=== PATIENT | female | born 1950 | race Hispanic/Latino ===

== ENCOUNTER 2018-01-23 09:04 | Emergency (ER) | payer OTHER ==
[2018-01-23] MEDS ORDERED: HYDROCODONE/APAP 10/325 TAB ONE (09:46)
[2018-01-23 10:43] LABS: Urine Blood TRACE (NEG); Urine Glucose NEGATIVE (NEG); Urine Protein NEGATIVE (NEG); Urine Specific Gravity >1.030 (1.005-1.030); Urine pH 5.5 (5.0-7.0)
--- NOTE | 2018-01-23 11:34 | RAD REPORT ---
EXAM DESCRIPTION: RAD - Ribs Right - 01/23/2018 10:45 am CLINICAL HISTORY: Fall, right-sided pain COMPARISON: 01/21/2018 FINDINGS: No displaced right rib fractures are seen. Cholecystectomy clips are noted. No pneumothora x is seen.
--- NOTE | 2018-01-23 12:22 | ER ---
Nurse's Notes [facility] Name: Xochitl Damico Age: 67 yrs Sex: Female : 1950 Arrival Date: 01/23/2018 Time: 09:05 Bed 17 Private MD: Phyllis Pérez Diagnosis: Contusion of right front wall of thorax-rib contusion Presentation: 01/23 09:21 Presenting complaint: Patient states: Fell from standing 6 days ago, had outpatient ss chest XRAY two days ago which was negative. However, patient complains of increased pain that is worse when moving or taking a deep breath. Transition of care: patient was not received from another setting of care. Onset of symptoms was January 19, 2018. Care prior to arrival: None. 09:21 Method Of Arrival: Ambulatory ss 09:21 Acuity: LUIS ANTONIO 3 ss Triage Assessment: 09:41 General: Appears in no apparent distress. uncomfortable. hj 09:41 General: Behavior is calm, cooperative, appropriate for age. hj 09:41 Pain: Complains of pain in chest. hj Historical: - Allergies: 09:23 No Known Allergies; ss - Immunization history:: Adult Immunizations up to date. - Social history:: Smoking status: Patient/guardian denies using tobacco. Screenin:40 Abuse screen: Denies threats or abuse. Denies injuries from another. Nutritional hj screening: No deficits noted. Tuberculosis screening: No symptoms or risk factors identified. Fall Risk None identified. Assessment: 09:40 Neuro: Level of Consciousness is awake, alert, obeys commands, Oriented to person, hj place, time, situation, Appropriate for age. 10:03 General: Appears in no apparent distress. uncomfortable, Behavior is cooperative, aj1 restless. Pain: Complains of pain in chest Pain does not radiate. Pain currently is 10 out of 10 on a pain scale. Is continuous, Alleviated by nothing. Aggravated by cough, deep breathing. Neuro: Level of Consciousness is awake, alert, obeys commands, Oriented to person, place, time, situation. Cardiovascular: Reports chest pain, Heart tones S1 S2 present Patient's skin is warm and dry. Rhythm is regular Chest pain is described as Pain is 10 out of 10 on a pain scale. is located in chest wall is aggravated by cough and deep breathing. Respiratory: Airway is patent Respiratory effort is even, unlabored, Respiratory pattern is regular, symmetrical, Breath sounds are clear bilaterally. GI: No signs and/or symptoms were reported involving the gastrointestinal system. : No signs and/or symptoms were reported regarding the genitourinary system. EENT: No signs and/or symptoms were reported regarding the EENT system. Derm: No signs and/or symptoms reported regarding the dermatologic system. Skin is pink, warm \T\ dry. normal. Musculoskeletal: No signs and/or symptoms reported regarding the musculoskeletal system. Circulation, motion, and sensation intact. 11:05 Reassessment: Patient appears in no apparent distress at this time. No changes from aj1 previously documented assessment. Patient and/or family updated on plan of care and expected duration. Pain level reassessed. Patient is alert, oriented x 3, equal unlabored respirations, skin warm/dry/pink. 12:16 Reassessment: Patient appears in no apparent distress at this time. No changes from aj1 previously documented assessment. Patient and/or family updated on plan of care and expected duration. Pain level reassessed. Patient is alert, oriented x 3, equal unlabored respirations, skin warm/dry/pink. Vital Signs: 09:15 BP 152 / 75; Pulse 67; Resp 18; Temp 97.8; Pulse Ox 99% on R/A; Weight 80.74 kg; Height mh5 5 ft. 8 in. (172.72 cm); Pain 10/10; 09:23 BP 152 / 79; Pulse 76; Resp 18; Pulse Ox 98% on R/A; Weight 80.74 kg; Height 5 ft. 8 ss in. (172.72 cm); Pain 10/10; 10:55 BP 126 / 98; Pulse 72; Resp 16; Pulse Ox 98% on R/A; Pain 9/10; mh5 12:16 BP 130 / 79; Pulse 65; Resp 18; Pulse Ox 95% on R/A; aj1 09:23 Body Mass Index 27.06 (80.74 kg, 172.72 cm) ED Course: 09:05 Patient arrived in ED. as 09:07 Phyllis Pérez MD is Private Physician. as 09:10 Sarbjit Asencio NP [facility]. pm1 09:10 Stanton Medrano MD is Attending Physician. pm1 09:23 Triage completed. ss 09:23 Arm band placed on right wrist. ss 09:41 Patient has correct armband on for positive identification. Placed in gown. Bed in low hj position. Call light in reach. Side rails up X 1. Adult w/ patient. 09:53 Urine collected: clean catch specimen, clear. [facility] 09:59 Alysia Coelho, RN is Primary Nurse. aj1 10:03 No provider procedures requiring assistance completed. aj1 10:36 Patient moved to radiology via wheelchair. kw1 10:42 X-ray completed. Patient tolerated procedure well. Patient moved back from radiology. jb2 10:43 Ribs Right XRAY In Process Unspecified. EDMS 12:58 Patient did not have IV access during this emergency room visit. aj1 Administered Medications: 09:44 Drug: [place] 10 mg-325 mg 1 tabs Route: PO; hj 09:48 Follow up: Response: No adverse reaction; Pain is decreased hj 12:57 Drug: Zofran 4 mg Route: PO; aj1 13:00 Follow up: Response: No adverse reaction aj1 Outcome: 12:21 Discharge ordered by MD. pm1 12:58 Discharged to home ambulatory. aj1 12:58 Condition: good 12:58 Discharge instructions given to patient, Instructed on discharge instructions, follow up and referral plans. medication usage, Demonstrated understanding of instructions, follow-up care, medications, Prescriptions given X 1. 13:01 Patient left the ED. aj1 Signatures: Dispatcher [employer] EDTX Alysia Coelho, TESS PULIDO aj1 Victoriano Valente jb2 Zonia Zambrano [place], RN RN Prashanth Mac RN RN Sarbjit Asencio NP [employer] pm1 Aylin Zambrano [facility] Jenni Layne [facility]
--- NOTE | 2018-01-23 12:22 | EDPHYS ---
Physician Documentation [facility] Name: Xochitl Damico Age: 67 yrs Sex: Female : 1950 Arrival Date: 01/23/2018 Time: 09:05 Bed 17 Private MD: Phyllis Pérez ED Physician Stanton Medrano HPI: 01/23 12:00 This 67 yrs old Female presents to ER via Ambulatory with complaints of Back pm1 Pain, Chest Wall Pain. 12:00 The patient or guardian reports chest pain that is located primarily in the right pm1 breast. Onset: The symptoms/episode began/occurred 6 day(s) ago. The pain does not radiate. Associated signs and symptoms: Pertinent negatives: abdominal pain, diaphoresis, nausea, palpitations, shortness of breath, vomiting. The chest pain is described as aching. Duration: The patient or guardian reports a single episode. Modifying factors: The symptoms are alleviated by nothing. the symptoms are aggravated by deep breath, palpation of area. Severity of pain: in the emergency department the pain is actually worse. The patient has been recently seen by a physician: the patient's primary care provider, chest xray two days ago for the same complaint after seeing PCP on the same day. Patient tripped at home with a coffee machine in her hands. Patient fell on her right side of her chest. Patient went to her PCP on Sunday and had a chest xray completed here. Negative for pneumothorax and rib fracture. Historical: - Allergies: 09:23 No Known Allergies; ss - Immunization history:: Adult Immunizations up to date. - Social history:: Smoking status: Patient/guardian denies using tobacco. ROS: 12:00 Constitutional: Negative for fever, chills, and weight loss, Eyes: Negative for injury, pm1 pain, redness, and discharge, ENT: Negative for injury, pain, and discharge, Neck: Negative for injury, pain, and swelling, Cardiovascular: Negative for chest pain, palpitations, and edema. Positive for right rib pain Respiratory: Negative for shortness of breath, cough, wheezing, and pleuritic chest pain, Abdomen/GI: Negative for abdominal pain, nausea, vomiting, diarrhea, and constipation. 12:00 : Negative for injury, bleeding, discharge, and swelling, MS/Extremity: Negative for injury and deformity, Skin: Negative for injury, rash, and discoloration, Neuro: Negative for headache, weakness, numbness, tingling, and seizure. 12:00 Back: Positive for of the right mid back. Exam: 12:00 Constitutional: This is a well developed, well nourished patient who is awake, alert, pm1 and in no acute distress. Head/Face: Normocephalic, atraumatic. Eyes: Pupils equal round and reactive to light, extra-ocular motions intact. Lids and lashes normal. Conjunctiva and sclera are non-icteric and not injected. Cornea within normal limits. Periorbital areas with no swelling, redness, or edema. ENT: Nares patent. No nasal discharge, no septal abnormalities noted. Tympanic membranes are normal and external auditory canals are clear. Oropharynx with no redness, swelling, or masses, exudates, or evidence of obstruction, uvula midline. Mucous membranes moist. Neck: Trachea midline, no thyromegaly or masses palpated, and no cervical lymphadenopathy. Supple, full range of motion without nuchal rigidity, or vertebral point tenderness. No Meningismus. 12:00 Cardiovascular: Regular rate and rhythm with a normal S1 and S2. No gallops, murmurs, or rubs. Normal PMI, no JVD. No pulse deficits. Respiratory: Lungs have equal breath sounds bilaterally, clear to auscultation and percussion. No rales, rhonchi or wheezes noted. No increased work of breathing, no retractions or nasal flaring. Abdomen/GI: Soft, non-tender, with normal bowel sounds. No distension or tympany. No guarding or rebound. No evidence of tenderness throughout. 12:00 Skin: Warm, dry with normal turgor. Normal color with no rashes, no lesions, and no evidence of cellulitis. MS/ Extremity: Pulses equal, no cyanosis. Neurovascular intact. Full, normal range of motion. 12:00 Chest/axilla: Inspection: normal, Palpation: crepitus, is not appreciated, tenderness, of the right breast, that totally reproduces the patient's complaints. 12:00 Back: pain, that is mild, of the right mid back, normal spinal alignment noted, vertebral tenderness, is not appreciated, muscle spasm, is appreciated in the right mid back. 12:00 Neuro: Orientation: is normal, Motor: is normal, moves all fours, strength is normal, strength is 5/5 in all extremities, Gait: is steady, at a normal pace, without difficulty. Vital Signs: 09:15 BP 152 / 75; Pulse 67; Resp 18; Temp 97.8; Pulse Ox 99% on R/A; Weight 80.74 kg; Height mh5 5 ft. 8 in. (172.72 cm); Pain 10/10; 09:23 BP 152 / 79; Pulse 76; Resp 18; Pulse Ox 98% on R/A; Weight 80.74 kg; Height 5 ft. 8 ss in. (172.72 cm); Pain 10/10; 10:55 BP 126 / 98; Pulse 72; Resp 16; Pulse Ox 98% on R/A; Pain 9/10; mh5 12:16 BP 130 / 79; Pulse 65; Resp 18; Pulse Ox 95% on R/A; aj1 09:23 Body Mass Index 27.06 (80.74 kg, 172.72 cm) ss MDM: 09:20 Patient medically screened. pm1 12:20 Data reviewed: vital signs. Data interpreted: Pulse oximetry: on room air is 95 %. pm1 Interpretation: normal. Counseling: I had a detailed discussion with the patient and/or guardian regarding: the historical points, exam findings, and any diagnostic results supporting the discharge/admit diagnosis, radiology results, the need for outpatient follow up, to return to the emergency department if symptoms worsen or persist or if there are any questions or concerns that arise at home. 01/23 09:53 Order name: Urine Dipstick--Ancillary (enter results); Complete Time: 10:47 bd 01/23 09:44 Order name: Ribs Right XRAY; Complete Time: 11:56 pm1 Administered Medications: 09:44 Drug: [place] 10 mg-325 mg 1 tabs Route: PO; hj 09:48 Follow up: Response: No adverse reaction; Pain is decreased hj 12:57 Drug: Zofran 4 mg Route: PO; aj1 13:00 Follow up: Response: No adverse reaction aj1 Disposition: 01/23/18 12:21 Discharged to Home. Impression: Contusion of right front wall of thorax - rib contusion. - Condition is Stable. - Discharge Instructions: Rib Contusion. - Prescriptions for Cyclobenzaprine 10 mg Oral Tablet - take 1 tablet by ORAL route every 8 hours As needed; 20 tablet. - Medication Reconciliation Form, Thank You Letter, Prescription Opioid Use form. - Follow up: Emergency Department; When: As needed; Reason: Worsening of condition. Follow up: Private Physician; When: 2 - 3 days; Reason: Recheck today's complaints, Continuance of care, Re-evaluation by your physician. - Problem is new. - Symptoms have improved. Addendum: 01/25/2018 07:29 Co-signature as Attending Physician, Stanton Medrano MD I agree with the assessment and w a plan of care. Signatures: Dispatcher [employer] EDAlysia Moreau RN RN aj1 Heather Angel RN RN ss Prashanth Mac RN RN hj Sarbjit Asencio, MACHINE OPERATOR GENERAL MACHINE OPERATOR GENERAL pm1 Stanton Medrano MD MD sd
[2018-01-23] MEDS ORDERED: ONDANSETRON 4 MG (ODT) TAB ONE (12:54)
== END 2018-01-23 13:01 | disposition home or self-care (01) ==
LOC: ER 09:04
DX: S20.211A Contusion of right front wall of thorax, initial encounter (principal); W01.0XXA Fall on same level from slipping, tripping and stumbling without subsequent striking against object, initial encounter; Y93.89 Activity, other specified; Y92.009 Unspecified place in unspecified non-institutional (private) residence as the place of occurrence of the external cause
CPT/HCPCS: 81003; 99284

== ENCOUNTER 2020-11-08 12:28 | Emergency (ER) | payer OTHER ==
--- OUTSIDE RECORDS SUMMARY | 2020-11-08 12:32 | XMS REPORT | Continuity of Care Document ---
:1950 Author Organization [employer] [facility] Care Team Providers Name Role Phone [employer] [facility] Unavailable Un available Problems Problem Status Onset Classification Date Comments Sourc e Date Reported Essential Active 08/17/20 Problem 08/28/2020 [facility] hypertension 15 Neuro (disorder) Essential tremor Active 08/17/20 Problem 08/28/2020 Mi melissa (disorder) 15 Neuro Hyperlipidemia Active 08/17/20 Problem 08/28/2020 Misc her (disorder) 15 Neuro Major depression, Active 08/17/20 Problem 08/28/2020 M ischer single episode 15 Neuro (disorder) Type II diabetes Active 08/17/20 Problem 08/28/2020 Mi melissa mellitus without 15 Katie ro complication (disorder) Hypothyroidism Active Problem 08/28/2020 Misc her (disorder) Neuro Headache (finding) Active Problem 08/28/2020 [facility] Tinnitus (finding) Active Problem 08/28/2020 [facility] Neck pain Active Problem 08/28/2020 [facility] (finding) Neuro Medications Medication Details Route Status Patient Ordering Order Source Instructions Provider Date primidone 250 250 mg = 1 Active [facility]ischer mg oral tablet tab, PO, BID, 020 Katie ro # 180 tab, 2 Refill(s), Pharmacy: [facility], 162.56, cm, 07/28/20 13:14:00 CDT, Height, 78.182, kg, 07/28/20 13:14:00 CDT, Weight levothyroxine 112 microgram Active Misc her 112 mcg (0.112 = 1 tab, PO, 020 Neur o mg) oral tablet Daily, 0 Refill(s) mesalamine 1200 1.2 gm = 1 Active Misch er MG Enteric tab, PO, BID, 020 Neuro Coated Tablet 0 Refill(s) sertraline 25 25 mg = 1 Active [facility]ischer mg oral tablet tab, PO, 020 Neuro Daily, 0 Refill(s) 3 ML 1.8 mg, Active [facility] liraglutide 6 SUB-Q, Daily, 020 Neur o MG/ML Prefilled # 9 mL, 1 Syringe Refill(s) [Victoza] primidone 250 250 mg = 1 Active Mischer mg oral tablet tab, PO, BID, 019 Katie ro # 180 tab, 2 Refill(s), [facility] primidone 50 mg 50 mg = 1 No Longer Mis her oral tablet tab, PO, BID, Active 018 Neuro # 180 tab, 3 Refill(s), [id number] primidone 50 mg 50 mg = 1 Inactive Misch er oral tablet tab, PO, BID, 018 Neuro X 90 day, # 180 tab, 2 Refill(s), [id number] Allergies, Adverse Reactions, Alerts Substance Category Reaction Severity Reaction Status Date Comments S ource type Reported No Known Assertion Drug Misch er Medication allergy Neuro Allergies Immunizations No Data Provided for This Section Results No Data Provided for This Section Pathology Reports No Data Provided for This Section Diagnostic Reports No Data Provided for This Section Consultation Notes No Data Provided for This Section Discharge Summaries No Data Provided for This Section History and Physicals No Data Provided for This Section Vital Signs Vital Sign Value Date Comments Source Systolic (mm Hg) 121 07/28/2020 [facility] Katie ro Diastolic (mm Hg) 60 07/28/2020 [facility] Ne uro Heart Rate 84 07/28/2020 [facility] Neuro Respitory Rate 16 07/28/2020 [facility] Neuro Height 162.56 cm 07/28/2020 [facility] Neuro Weight 78.182 07/28/2020 [facility] Neuro BMI Calculated 29.59 07/28/2020 [facility] Neuro Encounters Location Location Encounter Encounter Reason Attending ADM [place] Stat us Source Details Type Number For Provider Date Date Visit Outpatient [id number] MARIIA 06/07 [facility] [place] Outpatient [id number] MARIIA 07/19 [facility] [place] MNA Ambulatory [id number] Mariia 07/19 07/19 [facility] Neurology Pre-Reg Kre /2017 [facility] MNA Outside [id number] 10/19 10/21 [facility] Neurology Medical /2018 [facility] Records Outpatient [id number] Mariia 01/02 Active [facility] [place] Outpatient [id number] Mariia 04/03 Active [facility] José Miguel MNA Ambulatory [id number] Mariia 04/03 04/03 [facility] Pre[facility] Outpatient [id number] Mariia 07/28 Active [facility] [place] MNA Outpatient [id number] Mariia 07/28 07/29 [facility] Outpatient [id number] Mariia 08/25 Active [facility] José Miguel MNA Outpatient [id number] Mariia 08/25 08/26 [facility] Outpatient [id number] Mariia 10/29 Active [facility] José Miguel Outpatient [id number] Mariia 12/10 Active [facility] José Miguel Procedures No Data Provided for This Section Assessment and Plan No Data Provided for This Section Plan of Care No Data Provided for This Section Social History Social History Date Source Social History TypeResponse 08/26/2020 [facility] o Smoking Status Never smoker; Exposure to Tobacco Smoke Unable to obtain; Cigarette Smoking Last 365 Days No; Reg Smoking Cessation Counseling No entered on: 08/25/20 Family History No Data Provided for This Section Advance Directives No Data Provided for This Section Functional Status No Data Provided for This Section
--- OUTSIDE RECORDS SUMMARY | 2020-11-08 12:33 | XMS REPORT ---
:1950 Author Organization [facility] Address [address] , [address] [place] [address] Care Team Providers Name Role Phone Bhatt, Chapin Unavailable [phone] PROBLEMS Type Condition ICD9-CM [id number] Onset Condition SNOMED Code Notes Code Code Dates Status Problem High cholesterol E78.00 Active 54779696 Problem Type 2 diabetes E11.9 Active 883997292 mellitus without complications Problem longterm current Z79.4 Active 749985067 use of insulin Problem Mixed E78.2 Active 331424604 hyperlipidemia Problem Acquired E03.9 Active 157970068 hypothyroidism Problem Memory problem R41.3 Active 292825169 Problem Diabetes E11.9 Active 706024771 Problem Depression, major, F32.2 Active 732915295226 single episode, severe Problem Circulation I99.9 Active 42985432 problem Problem Grieving F43.21 Active 30877537 Problem Depression F32.9 Active 58401468 Problem Paresthesia of R20.2 Active 97855842 skin Problem HTN (hypertension) I10 Active 33559027 Problem Mixed stress and N39.46 Active 797429517 urge urinary incontinence Problem Gastroesophageal K21.9 Active 422929094 reflux disease without esophagitis Problem Uncontrolled type E11.65 Active [id number] 9 2 diabetes mellitus with hyperglycemia Problem Stress N39.3 Active 07818766 incontinence of urine ALLERGIES No Known Allergies ENCOUNTERS from 1950 to 2020-10-29 Encounter Location Date Provider Diagnosis [facility] [address] Oct, 2020 Chapin Bhatt Acut e pain of right Joint [facility] [address] [place], shoulder M25.511 [facility] [id number] IMMUNIZATIONS Vaccine Route Administration Date Status FluAD IM Intramuscular Jun 26, 2019 Administered SOCIAL HISTORY Tobacco Use: Social History Observation Description Date Details (start date - stop date) Former Smoker Sex Assigned At : Social History Observation Description Sex Assigned At Unknown PHQ9 Question Answer Notes Little interest or pleasure in doing Nearly every day things Feeling down, depressed, or hopeless Nearly every day Trouble falling or staying asleep or Nearly every day sleeping too much Feeling tired or having little energy Several days Poor appetite or overeating Several days Feeling bad about yourself, or that you More than half the d ays are a failure, or have let yourself or your family down Trouble concentrating on things, such as Not at all reading the newspaper or watching television Moving or speaking so slowly that other More than half the d ays people could have noticed; or the opposite, being so fidgety or restless that you have been moving around a lot more than usual Total Score 16 Interpretation Moderately severe depression Thoughts that you would be better off Several days (Con regulatory auditor Suicide or of hurting yourself in some way Assessment Risk) Tobacco Use/Smoking Question Answer Notes Are you a former smoker REASON FOR REFERRAL No Information VITAL SIGNS No information MEDICATIONS Medication SIG (Take, Route, Notes Start Date End Date Status Frequency, Duration) Lisinopril 40 MG 1 tablet Orally Once a Active day for 90 Victoza 18 MG/3ML 1.8mg Subcutaneous Active daily for 90 days FreeStyle Daniela 14 Day as directed daily for Apr, Active [place] - 30 days FreeStyle Daniela 14 Day as directed SC daily Apr, Active Sensor - for 30 days Levothyroxine Sodium 112 1 tablet on an empty Active MCG stomach in the morning Orally Once a day for 90 Glucometer Kit Check BS twice a day Nov,February, Active Fingerstick BID for 99 months Jardiance 25 MG 1 tablet Orally Once a Active day for 90 days Lovastatin 20 MG 1 tablet with the A ctive evening meal Orally Once a day for 90 days Levemir 100 UNIT/ML as directed Acti ve Subcutaneous Duloxetine HCl 60 MG 2 capsule Orally Once a Active day for 90 days Trazodone HCl 50 MG 1 tablet at bedtime as Active needed Orally Once a day for 90 days Metformin HCl 1000 MG 1 tablet with a meal Active Orally twice a day for 90 days Omeprazole 40 MG 1 capsule Orally Once a Active day Oxybutynin Chloride 5 MG 1 tablet Orally Twice a Active day for 90 days Gemfibrozil 600 MG 1 tablet Orally once a Active day for 90 days PROCEDURES No Information RESULTS No Results REASON FOR VISIT xray MEDICAL (GENERAL) HISTORY Type Description Date Medical History High cholesterol Medical History Depression Medical History HTN (hypertension) Medical History Memory problem Medical History Diabetes Medical History Circulation problem Surgical History No Surgical history information Goals Section No Information Health Concerns No Information MEDICAL EQUIPMENT No Information MENTAL STATUS No Information FUNCTIONAL STATUS No Information ASSESSMENTS Encounter Date Diagnosis Assessment Notes Treatment Notes Treatm ent Clinical Notes Oct, Acute pain of right shoulder (ICD-10 - M25.511) PLAN OF TREATMENT Medication Medication Name Sig Start Date Stop Date Levothyroxine Sodium 112 MCG 1 tablet on an empty stomach in the morning Orally Once a day for 90 FreeStyle Daniela 14 Day Sensor - as directed SC daily for 30 2018 days Oxybutynin Chloride 5 MG 1 tablet Orally Twice a day for 90 days Gemfibrozil 600 MG 1 tablet Orally once a day for 90 days FreeStyle Daniela 14 Day [place] - as directed daily for 30 days Apr, Lisinopril 40 MG 1 tablet Orally Once a day for 90 Duloxetine HCl 60 MG 2 capsule Orally Once a day for 90 days Metformin HCl 1000 MG 1 tablet with a meal Orally twice a day for 90 days Victoza 18 MG/3ML 1.8mg Subcutaneous daily for 90 days Trazodone HCl 50 MG 1 tablet at bedtime as needed Orally Once a day for 90 days Jardiance 25 MG 1 tablet Orally Once a day for 90 days Lovastatin 20 MG 1 tablet with the evening meal Orally Once a day for 90 days Treatment Notes Test Name Order Date Shoulder Right 2 View 2020-10-29 Next Appt Details Provider Name:Chapin Bhatt, 2020-11-04 0 2:00:00 PM, [address], [place], [address], Insurance Providers Payer Name Payer Payer Insured Patient Coverage Coverage End Address Phone Name Relationship to Start Date Ryan e Insured [employer] [address] [address] [phone] [facility] [employer] [address] [address]
--- OUTSIDE RECORDS SUMMARY | 2020-11-08 12:33 | XMS REPORT | Continuity of Care Document ---
:1950 Author Organization [facility] t Address [address] [place] [address] Care Team Providers Name Role Phone Stanton Jeffers Attending Clinician Problems Condition Condition Condition Status Onset Resolution Last Treating Co mments Source Name Details Category Date Date Treatment Clinician Date Moderate Moderate Problem Active [place] recurrent Recurrent 6-21 da major Major 00:00: [facility] depression Depression 00 al [facility] Recurrent Recurrent Problem Active [place] major Major 6-21 da depressive Depressive 00:00: [facility] episodes, Episodes, 00 al moderate Moderate Health Outreac h Program Generalize Generalize Problem Active 2018 M [place] d anxiety d Anxiety 6-21 da disorder Disorder 00:00: [facility] 00 al [facility] Essential Problem Active 2014-102020-08-28 Me moria hypertensi - 01:44:18 l on 00:00: José Miguel (disorder) Essential 00 hypertensi on (disorder) Active 08/17/2015 Problem 08/28/2020 [facility] Essential Problem Active 2014-102020-08-28 Me moria tremor - 01:44:18 l (disorder) 00:00: Omar n Essential 00 tremor (disorder) Active 08/17/2015 Problem 08/28/2020 [facility] Hyperlipid Problem Active 2014-102020-08-28 M emoria emia - 01:44:18 l (disorder) 00:00: Omar n Hyperlipid 00 emia (disorder) Active 08/17/2015 Problem 08/28/2020 [facility] Major Problem Active 2014-102020-08-28 Memor ia depression 10-17 01:44:18 l , single Major 00:00: José Miguel episode depression 00 (disorder) , single episode (disorder) Active 08/17/2015 Problem 08/28/2020 [facility] Type II Problem Active 2014-102020-08-28 Livan julien diabetes 10-17 01:44:18 l mellitus Type II 00:00: Christiana nn without diabetes 00 complicati mellitus on without (disorder) complicati on (disorder) Active 08/17/2015 Problem 08/28/2020 [facility] Hypothyroi Problem Active 2020-08-28 M emoria dism 01:44:18 l (disorder) Omar n Hypothyroi dism (disorder) Active Problem 08/28/2020 [facility] Headache Problem Active 2020-08-28 Mem oria (finding) 01:44:18 l Headache Omar n (finding) Active Problem 08/28/2020 [facility] Tinnitus Problem Active 2020-08-28 Mem oria (finding) 01:44:18 l Tinnitus Omar n (finding) Active Problem 08/28/2020 [facility] Neck pain Problem Active 2020-08-28 Me moria (finding) 01:44:18 l Neck [place] pain (finding) Active Problem 08/28/2020 [facility] Allergies, Adverse Reactions, Alerts Allergy Allergy Status Severity Reaction(s) Onset Inactive Treating Comm ents Source Name Type Date Date Clinician Gabapent Allergy Active Mild to Other 2013-10 [place] in to moderate 0-28 da substanc 00:00: [facility] Neuronti Allergy Active Mild Hives 2013-10 [place] n to 0-28 da substanc 00:00: [facility] No Known No Known Active Memori a Medicati Medicati l on on José Miguel Vizcarra s s Social History Smoking Status Start Date Stop Date Source Social History [facility] José Miguel Medications Ordered Filled Start Stop Current Ordering Indication Dosage Frequency Signature Comments Components Source Medication Medication Date Date Medication? Clinician (SIG) Name Name primidone 2019-10 Yes 250 mg = 1 Me moria 250 mg oral 1-11 tab, PO, l tablet 20:04: BID, # 180 Christiana nn 00 tab, 2 Refill(s), Pharmacy: [facility], 162.56, cm, 07/28/20 13:14:00 CDT, Height, 78.182, kg, 07/28/20 13:14:00 CDT, Weight levothyroxi 2019-10 Yes 112 Memori a ne 112 mcg 0-14 microgram l (0.112 mg) 18:25: = 1 tab, Her grimm oral tablet 00 PO, Daily, 0 Refill(s) mesalamine 2019-10 Yes 1.2 gm = 1 M emoria 1200 MG 0-14 tab, PO, l Enteric 18:25: BID, 0 [place] Coated 00 Refill(s) Tablet sertraline 2019-10 Yes 25 mg = 1 Me moria 25 mg oral 0-14 tab, PO, l tablet 18:25: Daily, 0 [place] 00 Refill(s) 3 ML 2019-10 Yes 1.8 mg, Memoria liraglutide 0-14 SUB-Q, l 6 MG/ML 18:25: Daily, # 9 Herm cristal Prefilled 00 mL, 1 Syringe Refill(s) [Victoza] One Touch One Touch 2019- No Na Schwartz as [facility] Ultra Ultra 2-02-14 directed [facility] - Glucose Glucose 00:00: 00:00 Memori a Monitor Monitor 00 :00 [facility] Glucometer Glucometer 2027- No Na Schwartz Check BS [facility] Kit Kit 202-12 twice a [facility] - 00:00: 00:00 day Memoria 00 :00 [facility] FreeStyle FreeStyle Yes Na Schwartz as [facility] Daniela 14 Daniela 14 7-23 directed Sandee es - Day Sensor Day Sensor 00:00: M emoria 00 [facility] FreeStyle FreeStyle Yes Na Schwartz as [facility] Daniela 14 Daniela 14 7-23 directed Sandee es - Day Renovo Day Renovo 00:00: M emoria 00 [facility] primidone Yes 250 mg = 1 Me moria 250 mg oral 5-16 tab, PO, l tablet 22:31: BID, # 180 Christiana nn 00 tab, 2 Refill(s), Pharmacy: [facility] primidone No 50 mg = 1 Mem oria 50 mg oral 9-25 tab, PO, l tablet 17:02: BID, # 180 Christiana nn 41 tab, 3 Refill(s), Pharmacy: [id number] primidone 2018-0 No 50 mg = 1 Mem oria 50 mg oral 9-25 tab, PO, l tablet 15:05: BID, X 90 Omar n 10 day, # 180 tab, 2 Refill(s), Pharmacy: [id number] Duloxetine Duloxetine Yes Na Schwartz [address] [facility] HCl HCl [facility] Victoza Victoza Yes Na Schwartz 1.8mg [facility] Levothyroxi Levothyroxi Yes Na Schwartz [address] [facility] ne Sodium ne Sodium on an Luke s - empty Memoria stomach [facility] Trazodone Trazodone Yes Na Schwartz [address] [facility] HCl HCl at bedtime [facility] - as needed Memoria l [facility] Levemir Levemir Yes Na Schwartz as [facility] directed [facility] Lisinopril Lisinopril Yes Na Schwartz [address] [facility] Lovastatin Lovastatin Yes Na Schwartz [address] [facility] with the [facility] - evening Memoria meal l [facility] Gemfibrozil Gemfibrozil Yes Na Schwartz [address] [facility] Metformin Metformin Yes Na Schwartz [address] [facility] HCl HCl with a [facility] - meal [facility]oria l [facility] Jardiance Jardiance Yes Na Schwartz [address] [facility] Duloxetine Duloxetine Yes Na Schwartz [address] [facility] HCl HCl [facility] Omeprazole Omeprazole Yes Na Schwartz [address] [facility] Oxybutynin Oxybutynin Yes Na Schwartz [address] [facility] Chloride Chloride [facility] Accu-Chek Accu-Chek No Accu-Chek [place] Nay Plus Nay Plus Nay Plus da Meter USE Meter USE Meter USE [facility] DIRECTED DIRECTED a l DIRECTED Health Outreac h Program Accu-Chek Accu-Chek No Accu-Chek [place] Nay Plus Nay Plus Nay Plus da test strips test strips test E [facility]op CHECK BLOOD CHECK BLOOD strips al SUGAR THREE SUGAR THREE CHECK Health TIMES A DAY TIMES A DAY BLOOD Outreac SUGAR h THREE Program TIMES A DAY Accu-Chek Accu-Chek No Accu-Chek [place] Softclix Softclix Softclix da Lancets Lancets Lancets [facility] CHECK BLOOD CHECK BLOOD CHECK al SUGAR THREE SUGAR THREE BLOOD Health TIMES A DAY TIMES A DAY SUGAR Outreac THREE h TIMES A Program DAY amoxicillin amoxicillin No amoxicilli [place] [phone] n 875 da mg-potassiu mg-potassiu mg-potassi [facility] m m um al clavulanate clavulanate clavulanat Health 125 mg 125 mg e 125 mg Outreac tablet tablet tablet h Program ciprofloxac ciprofloxac No ciprofloxa [place] in 500 mg in 500 mg eugene 500 mg da tablet tablet tablet [facility] duloxetine duloxetine No duloxetine [place] 30 mg 30 mg 30 mg da capsule,del capsule,del capsule,de [facility] ayed ayed layed al release release release Health Outreac h Program duloxetine duloxetine No duloxetine [place] 60 mg 60 mg 60 mg da capsule,del capsule,del capsule,de [facility] ayed ayed layed al release release release Health Take 1 Take 1 Take 1 Outreac capsule capsule capsule h every day every day every day Program by oral by oral by oral route with route with route with meals for meals for meals for 30 days. 30 days. 30 days. Durezol Durezol No Durezol [place] 0.05 % eye 0.05 % eye 0.05 % eye da drops drops drops [facility] Outreac [facility] Program fluconazole fluconazole No fluconazol [place] 200 mg 200 mg e 200 mg da tablet tablet tablet [facility] Fluzone Fluzone No Fluzone [place] High-Dose High-Dose High-Dose da Quad Quad Quad [facility] al (PF) 240 (PF) 240 (PF) 240 Hea lth mcg/0.7 mL mcg/0.7 mL mcg/0.7 mL Outreac IM syringe IM syringe IM syringe h PHARMACIST PHARMACIST PHARMACIST Program ADMINISTERE ADMINISTERE ADMINISTER D D ED IMMUNIZATIO IMMUNIZATIO IMMUNIZATI N N ON ADMINISTERE ADMINISTERE ADMINISTER D AT TIME D AT TIME ED AT TIME OF OF OF DISPENSING DISPENSING DISPENSING gemfibrozil gemfibrozil No gemfibrozi [place] 600 mg 600 mg l 600 mg da tablet tablet tablet [facility] Outreac h Program Jardiance Jardiance No Jardiance [place] 25 mg 25 mg 25 mg da tablet tablet tablet [facility] Outreac h Program levothyroxi levothyroxi No levothyrox [place] ne 112 mcg ne 112 mcg ine 112 da tablet tablet mcg tablet [facility] Outreac h Program lisinopril lisinopril No lisinopril [place] 40 mg 40 mg 40 mg da tablet tablet tablet [facility] Outreac h Program lovastatin lovastatin No lovastatin [place] 20 mg 20 mg 20 mg da tablet tablet tablet [facility] Outreac h Program lovastatin lovastatin No lovastatin [place] 40 mg 40 mg 40 mg da tablet tablet tablet [facility] Outreac h Program meclizine meclizine No meclizine [place] 12.5 mg 12.5 mg 12.5 mg da tablet TAKE tablet TAKE tablet [facility] 2 TABLETS 2 TABLETS TAKE 2 al BY MOUTH BY MOUTH TABLETS BY H ealth EVERY 6 EVERY 6 MOUTH Outreac HOURS FOR HOURS FOR EVERY 6 h 15 DAYS 15 DAYS HOURS FOR Prog faiza 15 DAYS meclizine meclizine No meclizine [place] 25 mg 25 mg 25 mg da tablet TAKE tablet TAKE tablet [facility] 1 TABLET BY 1 TABLET BY TAKE 1 al MOUTH EVERY MOUTH EVERY TABLET BY Health 6 HOURS FOR 6 HOURS FOR MOUTH Outreac 15 DAYS 15 DAYS EVERY 6 h HOURS FOR Program 15 DAYS mesalamine mesalamine No mesalamine [place] 1.2 gram 1.2 gram 1.2 gram da tablet,chago tablet,chago tablet,del [facility] yed release yed release ayed a l TAKE 2 TAKE 2 release Health TABLETS BY TABLETS BY TAKE 2 O utreac MOUTH DAILY MOUTH DAILY TABLETS BY h MOUTH Program DAILY metformin metformin No metformin [place] 1,000 mg 1,000 mg 1,000 mg da tablet tablet [facility] naproxen naproxen No naproxen [place] 500 mg 500 mg 500 mg da tablet tablet tablet [facility] Program ofloxacin ofloxacin No ofloxacin [place] 0.3 % ear 0.3 % ear 0.3 % ear da drops drops drops [facility] Program omeprazole omeprazole No omeprazole [place] 40 mg 40 mg 40 mg da capsule,del capsule,del capsule,de [facility] ayed ayed layed al release release release [facility] Program OneTouch OneTouch No OneTouch [place] Delica Delica Delica da Lancets 30 Lancets 30 Lancets 30 [facility] gauge gauge gauge [facility] Program OneTouch OneTouch No OneTouch [place] Ultra2 Ultra2 Ultra2 da Meter kit Meter kit Meter kit [facility] Program oxybutynin oxybutynin No oxybutynin [place] chloride 5 chloride 5 chloride 5 da mg tablet mg tablet mg tablet [facility] Program Prevnar 13 Prevnar 13 No Prevnar 13 [place] (PF) 0.5 mL (PF) 0.5 mL (PF) 0.5 da intramuscul intramuscul mL E [facility]iscop ar syringe ar syringe intramuscu al PHARMACIST PHARMACIST [facility] ADMINISTERE ADMINISTERE syringe Outreac D D PHARMACIST h IMMUNIZATIO IMMUNIZATIO ADMINISTER Program N N ED ADMINISTERE ADMINISTERE IMMUNIZATI D AT TIME D AT TIME ON OF OF ADMINISTER DISPENSING DISPENSING ED AT TIME OF DISPENSING primidone primidone No primidone [place] 250 mg 250 mg 250 mg da tablet tablet tablet [facility] Outreac Program primidone primidone No primidone [place] 50 mg 50 mg 50 mg da tablet tablet tablet [facility] Outreac Program promethazin promethazin No promethazi [place] e 12.5 mg e 12.5 mg ne 12.5 mg da tablet TAKE tablet TAKE tablet [facility] 1 TABLET BY 1 TABLET BY TAKE 1 al MOUTH EVERY MOUTH EVERY TABLET BY Health 6 HOURS IF 6 HOURS IF MOUTH Ou treac NEEDED FOR NEEDED FOR EVERY 6 h NAUSEA AND NAUSEA AND HOURS IF Program VOMITING VOMITING NEEDED FOR FOR UP TO 7 FOR UP TO 7 NAUSEA AND DAYS DAYS VOMITING FOR UP TO 7 DAYS promethazin promethazin No promethazi [place] e 25 mg e 25 mg ne 25 mg da tablet tablet tablet [facility] Program sertraline sertraline No sertraline [place] 25 mg 25 mg 25 mg da tablet TAKE tablet TAKE tablet [facility] 1 TABLET BY 1 TABLET BY TAKE 1 al MOUTH ONCE MOUTH ONCE TABLET BY Health DAILY DAILY MOUTH ONCE Outreac DAILY h Program Suprep Suprep No Suprep [place] Bowel Prep Bowel Prep Bowel Prep da Kit 17.5 Kit 17.5 Kit 17.5 Epi scop gram-3.13 gram-3.13 gram-3.13 al gram-1.6 gram-1.6 gram-1.6 Hea lth gram oral gram oral gram oral Outreac solution solution solution h USE USE USE Program DIRECTED DIRECTED DIRECTED topiramate topiramate No topiramate [place] 25 mg 25 mg 25 mg da tablet tablet tablet [facility] Outreac [facility] Program tramadol 50 tramadol 50 No tramadol [place] mg tablet mg tablet 50 mg da tablet [facility] Out[facility] Program trazodone trazodone No trazodone [place] 50 mg 50 mg 50 mg da tablet Take tablet Take tablet [facility] 1 tablet 1 tablet Take 1 al every day every day tablet Hea lth by oral by oral every day Outr eac route at route at by oral h bedtime for bedtime for route at Program 30 days. 30 days. bedtime for 30 days. Victoza Victoza No Victoza [place] 3-Jvoany 0.6 3-Jovany 0.6 3-Jovany 0.6 da mg/0.1 mL mg/0.1 mL mg/0.1 mL [facility] (18 mg/3 (18 mg/3 (18 mg/3 al mL) mL) mL) Health subcutaneou subcutaneou subcutaneo Outreac s pen s pen us pen h injector injector injector Pro gram Vital Signs Vital Name Observation Time Observation Value Comments Source Systolic (mm Hg) 2020-07-28 18:14:00 Livan Valdez Diastolic (mm Hg) 2020-07-28 [facility] 2020-07-28 18:14:00 [facility] Respitory Rate 2020-07-28 18:14:00 Tanvir al José Miguel Height 2020-07-28 18:14:00 162.56 cm [facility] José Miguel [facility] 2020-07-28 [facility] 2020-07-28 18:14:00 Tanvir Khan Procedures Procedure Date / Time Performed Performing Clinician Sourc e Cholecystectomy [place] [facility] Total Hysterectomy [place] [facility] Plan of Care Planned Activity Planned Date Details Comments Source Instructions [place] [facility] Encounters Start End Encounter Admission Attending Care Care Encounter Source Date/Time Date/Time Type Type Clinicians Facility Department ID 2020-10-29 2020-10-29 Outpatient STLMLC STLML[facility] [id number] [facility] St 00:00:00 00:00:00 [facility] ent Clinics 2020-08-25 2020-08-25 Outpatient Zeyad, CYRUSMISCHER MHMISCHER [id number] 13:30:00 23:59:59 Braeden 05 Stanton 2020-08-24 2020-08-24 Julianne HERNANDEZ [place] - [id number] M atagor 00:00:00 00:00:00 Rowena dawson, POWER TOOL REPAIRER: [facility] [address] Espinoza [facility] [address] [facility] am , Ph. [phone]--20072020-07-28 2020-07-28 Outpatient DAMIAN JeffersSCHBHUMI MISCHER [id number] 13:15:00 23:59:59 Braeden 04 Stanton 2020-06-30 2020-06-30 Julianne HERNANDEZ [place] - [id number] M at[place]or 00:00:00 00:00:00 Rowena dawson, POWER TOOL REPAIRER: [facility] [address] [place] [address] [facility] am , Ph. [phone] --[phone] 2020-06-16 Julianne HERNANDEZ [place] - [id number] M atagor 00:00:00 00:00:00 Rowena dawson, POWER TOOL REPAIRER: [facility] [address] [facility] [address] [employer] , Ph. [phone] --[phone] 2019-11-21 Outpatient Rafa Craigt [id number] [address] 13:40:00 13:40:00 [employer] [place] [employer] [facility] 2019-11-14 2019-11-14 [facility] [id number] 10:51:00 10:51:00 t [employer] [facility] 2019-10-22 2019-10-22 [facility] [id number] 11:20:00 11:20:00 [facility] [employer] [facility] 2019-04-03 2019-04-03 Outpatient NICKOLAS Jeffers MAVERICKSCHBHUMI [id number] 10:00:00 10:00:00 Braeden Eid 2018-10-19 2018-10-20 Outpatient MHMISCHER MHMISCHER [id number] 11:27:00 23:59:59 00 2018-07-19 2018-07-19 Outpatient DAMIAN JeffersSCHBHUMI MISCHER [id number] 10:15:00 10:15:00 Bareden Eid Results This patient has no known results.
[2020-11-08] MEDS ORDERED: MECLIZINE HCL 12.5 MG TAB ONE (16:14)
[2020-11-08 16:41] LABS: Absolute Lymphocytes (CBC) 1.5 K/uL (0.7-4.9); Basophils % 1.1 % (0-1.3); Hematocrit 41.4 % (36.0-45.0); MPV 9.8 fL (7.6-11.3); RBC Red Blood Cell Count 4.78 M/uL (3.86-4.86)
--- NOTE | 2020-11-08 16:44 | RAD REPORT ---
EXAM DESCRIPTION: CT - CTHCSPWOC - 11/08/2020 4:29 pm CLINICAL HISTORY: dizziness, neck pain after fall COMPARISON: No comparisons TECHNIQUE: Axial 5 mm thick images of the head were obtained. Axial 2 mm thick images of the cervic al spine were obtained with sagittal and coronal reconstruction images generated and reviewed. All CT scans are performed using dose optimization technique as appropriate and may include automated exposure control or mA/KV adjustment according to patient size. FINDINGS: No intracranial hemorrhage, mass, edema or acute intracranial finding. No suspicion for ac timi infarction. No cortical edema or sulcal effacement. Mild atrophy and chronic ischemic changes are present with ventricles in proportion to volume loss. Mastoid air cells and paranasal sinuses are cl ear. No globe or orbit abnormality seen. Cervical body height and alignment are normal. C5-6 and C6-7 disc space narrowing present. Bulging di sc material is present at C5-6. There is also posterior endplate spurring and uncovertebral joint hyp ertrophy. Canal is borderline stenotic at 10 mm. Mild left-sided and ayny-nm-acbjdily right-sided for aminal stenosis present. There is moderate left foraminal stenosis at C6-7. No fracture or acute bony abnormality. Central canal detail is inherently limited. No paraspinal mass or hematoma. IMPRESSION: Negative CT head examination for acute or significant finding. Prominent cervical spine degenerative change as detailed. No acute findings seen.
[2020-11-08 16:50] LABS: BUN Blood Urea Nitrogen 13 mg/dL (7-18); Bicarbonate 27 mmol/L (21-32); Glucose Level 93 mg/dL (74-106); Potassium 4.2 mmol/L (3.5-5.1); Sodium Level 136 mmol/L (136-145)
[2020-11-08 16:54] LABS: Urine Bacteria >50 /HPF (<20); Urine RBC <5 /HPF (NONE SEEN)
[2020-11-08] MEDS ORDERED: CEFTRIAXONE/SWI 1gm 1 GM/10 ML SYR ONE (17:18)
[2020-11-08] MEDS ORDERED: HYDROCODONE/APAP 5/325 MG TAB ONE (17:30)
[2020-11-08 18:05] LABS: SARS-COV-2 RT PCR NEGATIVE (NEGATIVE)
--- NOTE | 2020-11-08 18:21 | EDPHYS ---
Physician Documentation [facility] Name: Xochitl Damico Age: 70 yrs Sex: Female : 1950 Arrival Date: 11/08/2020 Time: 12:32 Bed 20 Private MD: ED Physician Magdiel Tierney HPI: 11/08 16:17 This 70 yrs old Female presents to ER via Ambulatory with complaints of rn Dizziness, Fall Injury. 16:17 The patient presents with dizziness, lightheadedness. rn 16:17 Onset: The symptoms/episode began/occurred yesterday. rn 16:17 Modifying factors: The symptoms are alleviated by holding head still, lying down, the rn symptoms are aggravated by turning head. Severity of symptoms: At their worst the symptoms were moderate in the emergency department the symptoms have improved. The patient has experienced a previous episode. Reports yesterday had 3 dizzy spells, fell once, onto left side, hit left hip, does not feel broken, feels bruised, able to walk on it. Denies focal weakness/numbness/chest pain/sob/abd pain/vomiting/diarrhea. Reports brief episode of dizziness, that resolve when holding still, and similar to previous vertigo episodes in past. No fever. Aponte snot feel ill. Feels better today with more mild dizziness. . Historical: - Allergies: 12:47 No Known Allergies; hb - Home Meds: 15:45 Lovastatin Oral [Active]; Lisinopril Oral [Active]; vg1 15:45 Lantus Sub-Q [Active]; vg1 - PMHx: 15:45 Hypertension; High Cholesterol; Diabetes - NIDDM; vg1 - Immunization history:: Adult Immunizations up to date. - Social history:: Smoking status: Patient denies any tobacco usage or history of. - Family history:: not pertinent. - Hospitalizations: : No recent hospitalization is reported. ROS: 16:17 Constitutional: Negative for fever, chills, and weight loss, Eyes: Negative for injury, rn pain, redness, and discharge, Neck: Negative for injury, pain, and swelling, Cardiovascular: Negative for chest pain, palpitations, and edema, Respiratory: Negative for shortness of breath, cough, wheezing, and pleuritic chest pain, Abdomen/GI: Negative for abdominal pain, nausea, vomiting, diarrhea, and constipation, Back: Negative for injury and pain, : Negative for injury, bleeding, discharge, and swelling, MS/Extremity: Negative for injury and deformity, Skin: Negative for injury, rash, and discoloration, Neuro: Negative for headache, weakness, numbness, tingling, and seizure. Exam: 16:17 Constitutional: This is a well developed, well nourished patient who is awake, alert, rn and in no acute distress. Head/Face: Normocephalic, atraumatic. Eyes: Pupils equal round and reactive to light, extra-ocular motions intact. Lids and lashes normal. Conjunctiva and sclera are non-icteric and not injected. Cornea within normal limits. Periorbital areas with no swelling, redness, or edema. Neck: Trachea midline, no thyromegaly or masses palpated, and no cervical lymphadenopathy. Supple, full range of motion without nuchal rigidity, or vertebral point tenderness. No Meningismus. Cardiovascular: Regular rate and rhythm. No pulse deficits. Respiratory: No increased work of breathing, no retractions or nasal flaring. Abdomen/GI: soft, non-tender Skin: Warm, dry MS/ Extremity: Pulses equal, no cyanosis. Neurovascular intact. Full, normal range of motion. Equal circumference. Neuro: Awake and alert, GCS 15, oriented to person, place, time, and situation. Cranial nerves II-XII grossly intact. Motor strength 5/5 in all extremities. Sensory grossly intact. Cerebellar exam normal. Vital Signs: 12:45 BP 114 / 85; Pulse 56; Resp 16; Temp 97.9; Pulse Ox 100% on R/A; Weight 74.84 kg; hb Height 5 ft. 4 in. (162.56 cm); Pain 8/10; 15:35 BP 129 / 69; Pulse 70; Resp 16; Pulse Ox 100% on R/A; vg1 16:00 BP 127 / 7; Pulse 72; Resp 14; Pulse Ox 100% on R/A; vg1 17:00 BP 141 / 70; Pulse 73; Resp 12; Pulse Ox 100% on R/A; vg1 18:00 BP 160 / 79; Pulse 74; Resp 16; Pulse Ox 99% on R/A; vg1 12:45 Body Mass Index 28.32 (74.84 kg, 162.56 cm) hb Roosevelt Coma Score: 15:43 Eye Response: spontaneous(4). Verbal Response: oriented(5). Motor Response: obeys vg1 commands(6). Total: 15. MDM: 15:41 Patient medically screened. rn 18:19 Differential diagnosis: generalized weakness, hypovolemia, idiopathic dizziness, rn near-syncope, TIA, vertigo, UTI, covid, viral syndrome. Data reviewed: vital signs, nurses notes, lab test result(s), EKG, radiologic studies, CT scan, and as a result, I will discharge patient. Counseling: I had a detailed discussion with the patient and/or guardian regarding: the historical points, exam findings, and any diagnostic results supporting the discharge/admit diagnosis, lab results, radiology results, the need for outpatient follow up, to return to the emergency department if symptoms worsen or persist or if there are any questions or concerns that arise at home. Response to treatment: the patient's symptoms have markedly improved after treatment, and as a result, I will discharge patient. Special discussion: I discussed with the patient/guardian in detail that at this point there is no indication for admission to the hospital. It is understood, however, that if the symptoms persist or worsen the patient needs to return immediately for re-evaluation. ED course: CT head neg, covid and flu neg, + UTI, has had vertigo before, will dc home with abx and meclizine. Given return precautions. Normal neuro exam here. . 11/08 15:53 Order name: Flu rn 11/08 15:53 Order name: CBC with Diff; Complete Time: 17:26 11/08 15:53 Order name: Basic Metabolic Panel; Complete Time: 16:53 11/08 15:53 Order name: Urine Microscopic Only; Complete Time: 17:26 rn 11/08 16:09 Order name: Urine Culture 11/08 16:11 Order name: Urine Dipstick--Ancillary (enter results) 11/08 16:12 Order name: Urine Dipstick-Ancillary [facility] 11/08 16:21 Order name: CT Head C Spine; Complete Time: 16:53 rn 11/08 18:06 Order name: COVID-19/FLU A+B; Complete Time: 18:19 [facility] 11/08 15:53 Order name: IV Start; Complete Time: 16:24 rn 11/08 15:53 Order name: Urine Dipstick-Ancillary (obtain specimen); Complete Time: 16:15 rn 11/08 15:53 Order name: EKG; Complete Time: 15:54 rn 11/08 15:53 Order name: EKG - Nurse/Tech; Complete Time: 16:15 rn Administered Medications: 16:01 Drug: Meclizine 50 mg Route: PO; vg1 18:44 Follow up: Response: No adverse reaction vg1 17:10 Drug: Rocephin 1 grams Route: IV; Rate: calculated rate; Site: left antecubital; vg1 18:44 Follow up: IV Status: Completed infusion vg1 17:16 Drug: [place] 5 mg-325 mg 1 tabs {Note: rass 0.} Route: PO; vg1 18:43 Follow up: Response: Pain is decreased vg1 Disposition: 11/08/20 18:21 Discharged to Home. Impression: Urinary tract infection, site not specified, Dizziness and giddiness, Vertigo. - Condition is Stable. - Discharge Instructions: Dizziness, Urinary Tract Infection, Adult, Vertigo. - Prescriptions for Meclizine 25 mg Oral Tablet - take 1 tablet by ORAL route every 8 hours As needed; 30 tablet. cefpodoxime 100 mg Oral Tablet - take 2 tablet by ORAL route every 12 hours for 10 days take with food; 40 tablet. - Medication Reconciliation Form, Thank You Letter, Antibiotic Education, Prescription Opioid Use form. - Follow up: Private Physician; When: As needed; Reason: Recheck today's complaints, Re-evaluation by your physician. - Problem is new. - Symptoms have improved. Signatures: Dispatcher [employer] EDMS Magdiel Tierney MD MD rn Baxter, Heather, RN RN hb Garcia, Victoria, RN RN vg1 Corrections: (The following items were deleted from the chart) 16:22 16:17 Constitutional: This is a well developed, well nourished patient who is awake, rn alert, and in no acute distress. Head/Face: Normocephalic, atraumatic. Eyes: Pupils equal round and reactive to light, extra-ocular motions intact. Lids and lashes normal. Conjunctiva and sclera are non-icteric and not injected. Cornea within normal limits. Periorbital areas with no swelling, redness, or edema. Neck: Trachea midline, no thyromegaly or masses palpated, and no cervical lymphadenopathy. Supple, full range of motion without nuchal rigidity, or vertebral point tenderness. No Meningismus. rn 16:25 15:54 Head Brain Wo Cont+CT.RAD.BRZ ordered. EDNC EDMS 17:18 15:54 Influenza Screen (A ordered. EDNC EDMS 17:18 15:54 CORONAVIRUS+MR.LAB.BRZ ordered. [facility] EDNC 18:45 18:21 11/08/2020 18:21 Discharged to Home. Impression: Urinary tract infection, site vg1 not specified; Dizziness and giddiness; Vertigo. Condition is Stable. Forms are Medication Reconciliation Form, Thank You Letter, Antibiotic Education, Prescription Opioid Use. Follow up: Private Physician; When: As needed; Reason: Recheck today's complaints, Re-evaluation by your physician. Problem is new. Symptoms have improved. rn
--- NOTE | 2020-11-08 18:21 | ER ---
Nurse's Notes [facility] Name: Xochitl Damico Age: 70 yrs Sex: Female : 1950 Arrival Date: 11/08/2020 Time: 12:32 Bed 20 Private MD: Diagnosis: Urinary tract infection, site not specified;Dizziness and giddiness;Vertigo Presentation: 11/08 12:44 Chief complaint: Left side pain after syncopal episode yesterday. Also c/o dizziness x hb 2 days. Care prior to arrival: None. Mechanism of Injury: Fall from standing position. Trauma event details: Injury occurred in the [facility], Injury occurred: at home. Injury occurred: November 08, 2020. 12:44 Acuity: LUIS ANTONIO 3 hb 12:44 Method Of Arrival: Ambulatory hb 12:45 Coronavirus screen: At this time, the client does not indicate any symptoms associated hb with coronavirus-19. Ebola Screen: No symptoms or risks identified at this time. Initial Sepsis Screen: Does the patient meet any 2 criteria? No. Patient's initial sepsis screen is negative. Does the patient have a suspected source of infection? No. Patient's initial sepsis screen is negative. Risk Assessment: Do you want to hurt yourself or someone else? Patient reports no desire to harm self or others. Onset of symptoms was November 07, 2020. Historical: - Allergies: 12:47 No Known Allergies; hb - Home Meds: 15:45 Lovastatin Oral [Active]; Lisinopril Oral [Active]; vg1 15:45 Lantus Sub-Q [Active]; vg1 - PMHx: 15:45 Hypertension; High Cholesterol; Diabetes - NIDDM; vg1 - Immunization history:: Adult Immunizations up to date. - Social history:: Smoking status: Patient denies any tobacco usage or history of. - Family history:: not pertinent. - Hospitalizations: : No recent hospitalization is reported. Screenin:42 Abuse screen: Denies threats or abuse. Nutritional screening: No deficits noted. vg1 Tuberculosis screening: No symptoms or risk factors identified. Fall Risk Fall in past 12 months (25 points). No secondary diagnosis (0 pts). IV access (20 points). Ambulatory Aid- None/Bed Rest/Nurse Assist (0 pts). Gait- Normal/Bed Rest/Wheelchair (0 pts) Mental Status- Oriented to own ability (0 pts). Total Bolton Fall Scale indicates High Risk Score (45 or more points). Fall prevention measures have been instituted. Side Rails Up X 2 Placed Close to Nursing Station. Primary Survey: 15:42 NO uncontrolled hemorrhage observed. Breathing/Chest: Respiratory pattern: regular, vg1 Respiratory effort: spontaneous, unlabored, Chest inspection: symmetrical rise and fall of the chest. Circulation: Skin color: pink. Disability Alert. Assessment: 15:35 General: Appears in no apparent distress. comfortable, Behavior is calm, cooperative. vg1 Pain: Complains of pain in left hip and left thigh. Pain currently is 8 out of 10 on a pain scale. Alleviated by relaxation, Aggravated by weight bearing. Neuro: Level of Consciousness is awake, alert, obeys commands, Oriented to person, place, time, situation. Cardiovascular: Patient's skin is warm and dry. Respiratory: Airway is patent Respiratory effort is even, unlabored, Respiratory pattern is regular, symmetrical. GI: Patient currently denies nausea, vomiting. : No signs and/or symptoms were reported regarding the genitourinary system. EENT: No signs and/or symptoms were reported regarding the EENT system. Derm: Skin is intact, is healthy with good turgor. Musculoskeletal: Circulation, motion, and sensation intact. 17:10 Reassessment: Patient c/o headache and requesting medication. Provider notified. vg1 17:14 Reassessment: Received VO from Dr Tierney to administer [place] 5/325mg PO x1. vg1 18:18 Reassessment: Patient appears in no apparent distress at this time. Patient is alert, vg1 oriented x 3, equal unlabored respirations, skin warm/dry/pink. Also stated that headache has gone away. Patient states feeling better. Vital Signs: 12:45 BP 114 / 85; Pulse 56; Resp 16; Temp 97.9; Pulse Ox 100% on R/A; Weight 74.84 kg; hb Height 5 ft. 4 in. (162.56 cm); Pain 8/10; 15:35 BP 129 / 69; Pulse 70; Resp 16; Pulse Ox 100% on R/A; vg1 16:00 BP 127 / 7; Pulse 72; Resp 14; Pulse Ox 100% on R/A; vg1 17:00 BP 141 / 70; Pulse 73; Resp 12; Pulse Ox 100% on R/A; vg1 18:00 BP 160 / 79; Pulse 74; Resp 16; Pulse Ox 99% on R/A; vg1 12:45 Body Mass Index 28.32 (74.84 kg, 162.56 cm) hb Holden Coma Score: 15:43 Eye Response: spontaneous(4). Verbal Response: oriented(5). Motor Response: obeys vg1 commands(6). Total: 15. ED Course: 12:32 Patient arrived in ED. mr 12:45 Triage completed. hb 12:47 Arm band placed on. hb 15:34 Leeanne Tamayo, RN is Primary Nurse. vg1 15:41 Magdiel Tierney MD is Attending Physician. rn 15:43 Patient has correct armband on for positive identification. Bed in low position. Call vg1 light in reach. Side rails up X 1. 15:43 Patient maintains SpO2 saturation greater than 95% on room air. vg1 16:00 EKG done, by ED staff, reviewed by Magdiel Tierney MD. dh3 16:10 Inserted saline lock: 20 gauge in left antecubital area, using aseptic technique. Blood vg1 collected. 16:10 Initial lab(s) drawn, by nc, sent to lab. vg1 16:15 Urine Microscopic Only Sent. dh3 16:15 Urine Culture Sent. dh3 16:24 COVID swab sent to lab. Flu and/or RSV swab sent to lab. vg1 16:[address] via stretcher. vg1 16:28 CT Head C Spine In Process Unspecified. EDMS 18:44 No provider procedures requiring assistance completed. IV discontinued, intact, vg1 bleeding controlled, No redness/swelling at site. Pressure dressing applied. Administered Medications: 16:01 Drug: Meclizine 50 mg Route: PO; vg1 18:44 Follow up: Response: No adverse reaction vg1 17:10 Drug: Rocephin 1 grams Route: IV; Rate: calculated rate; Site: left antecubital; vg1 18:44 Follow up: IV Status: Completed infusion vg1 17:16 Drug: [place] 5 mg-325 mg 1 tabs {Note: rass 0.} Route: PO; vg1 18:43 Follow up: Response: Pain is decreased vg1 Outcome: 18:21 Discharge ordered by . rn 18:44 Discharged to home ambulatory. vg1 18:44 Condition: stable 18:44 Discharge instructions given to patient, Instructed on discharge instructions, follow up and referral plans. medication usage, Demonstrated understanding of instructions, follow-up care, medications, Prescriptions given X 2. 18:45 Patient left the ED. vg1 Signatures: Dispatcher [employer] MULUMN JuveYumi mr TierneyMagdiel MD MD rn Baxter, Heather RN RN [facility] Leeanne Tamayo, RN RN vg1
[2020-11-08 18:34] LABS: Urine Blood NEGATIVE (NEG); Urine Glucose 3+ (NEG); Urine Protein NEGATIVE (NEG); Urine Specific Gravity 1.015 (1.005-1.030)
[2020-11-08 18:57] VITALS: TEMP 97.9
[2020-11-08 19:02] VITALS: BP 160/79; O2SAT 99
--- NOTE | 2020-11-10 06:33 | EKG ---
Test Date: 2020-11-08 Test Time: 16:01:08 User Acceptance Tester: JUDIE MEASUREMENT RESULTS: Intervals: Rate: 72 MT: 128 QRSD: 96 QT: 416 QTc: 455 [place]: P: 3 MT: 128 QRS: -42 T: 51 INTERPRETIVE STATEMENTS: Normal sinus rhythm Left axis deviation Low voltage QRS Cannot rule out Anterior infarct, age undetermined Abnormal ECG Compared to ECG 09/21/2009 09:32:41 Left-axis deviation now present Low QRS voltage now present Myocardial infarct finding now present Electronically Signed On 11-10-20 06:27:40 AVIONICS SYSTEM ENGINEER by Huey Leon
== END 2020-11-08 18:45 | disposition home or self-care (01) ==
LOC: ER 12:28
DX: R42 Dizziness and giddiness (principal); N39.0 Urinary tract infection, site not specified; Z20.822 Contact with and (suspected) exposure to COVID-19; E11.9 Type 2 diabetes mellitus without complications; E78.00 Pure hypercholesterolemia, unspecified; I10 Essential (primary) hypertension; Z79.4 Long term (current) use of insulin; Z91.81 History of falling
CPT/HCPCS: 96365; 93005; 87088; 85025; 87086; 80048; 36415; 87077; 87186; 0240U; 70450; 72125; 99285; 96366; J0696; 81003; 81015